=== PATIENT | male | born 1970 | race Caucasian/White ===

== ENCOUNTER 2019-01-23 09:30 | Outpatient (CLI) | payer MEDICARE, MEDICAID | END 2019-01-23 23:59 | disposition home or self-care (01) | LOC: RAD 09:30 | DX: G40.309 Generalized idiopathic epilepsy and epileptic syndromes, not intractable, without status epilepticus (principal); Z87.891 Personal history of nicotine dependence | CPT/HCPCS: 95819 ==

== ENCOUNTER 2023-10-28 07:54 | Emergency (ER) | payer MEDICARE, MEDICAID ==
[~2023-10-28] VITALS: Ht 175.3 cm; Wt 81.8 kg
[2023-10-28 07:55] VITALS: BP 105/77; PULSE 88; RESP 15; TEMP 98.8; O2SAT 95
[2023-10-28] MEDS ORDERED: NEOM1OIN8 TOP (08:40)
[2023-10-28] MEDS: TETanus/Pertussis (Acell)/Diphther VAC/PF (Tdap-Adult) 0.5ml syringe IMVAC ONE (09:05)
== END 2023-10-28 10:07 | disposition home or self-care (01) ==
LOC: ER 07:54
DX: S80.212A Abrasion, left knee, initial encounter (principal); S80.211A Abrasion, right knee, initial encounter; G80.9 Cerebral palsy, unspecified; Z79.899 Other long term (current) drug therapy; W01.10XA Fall on same level from slipping, tripping and stumbling with subsequent striking against unspecified object, initial encounter; Y93.89 Activity, other specified; Y92.89 Other specified places as the place of occurrence of the external cause; Y99.8 Other external cause status
CPT/HCPCS: 90471; 90715; 99284

== ENCOUNTER 2023-12-25 21:29 | Emergency (ER) | payer MEDICARE, MEDICAID ==
[~2023-12-25] VITALS: Ht 162.6 cm; Wt 81.0 kg
[~2023-12-25 21:29] MED LIST: NEOM1OIN8 TOP
[2023-12-25 21:41] VITALS: BP 126/79; PULSE 106; RESP 16; TEMP 98.2; O2SAT 95
== END 2023-12-25 23:22 | disposition home or self-care (01) ==
LOC: ER 21:30
DX: S80.02XA Contusion of left knee, initial encounter (principal); S80.01XA Contusion of right knee, initial encounter; Z79.899 Other long term (current) drug therapy; W01.0XXA Fall on same level from slipping, tripping and stumbling without subsequent striking against object, initial encounter; Y93.89 Activity, other specified; Y92.89 Other specified places as the place of occurrence of the external cause; Y99.8 Other external cause status
CPT/HCPCS: 99284

== ENCOUNTER 2024-01-15 22:17 | Emergency (ER) | payer MEDICARE, MEDICAID ==
[~2024-01-15] VITALS: Ht 167.6 cm; Wt 72.7 kg
[~2024-01-15 22:17] MED LIST changes: +ZINC113C10 TOP
[2024-01-16 00:58] VITALS: TEMP 97.5
[2024-01-16] MEDS ORDERED: ketorolac trometh 15mg/ml vial 15 MG/ML ML IM ONE (02:50)
[2024-01-16] MEDS: ketorolac trometh 30MG/ML vial 30 MG/ML VIAL IM ONE (03:05)
[2024-01-16 03:42] VITALS: BP 138/91; PULSE 84; RESP 19; O2SAT 99
== END 2024-01-16 03:45 | disposition home or self-care (01) ==
LOC: ER 22:18
DX: G89.29 Other chronic pain (principal); M54.50 Low back pain, unspecified
CPT/HCPCS: 96372; 99283; J1885

== ENCOUNTER 2024-01-18 00:45 | Emergency (ER) | payer MEDICARE, MEDICAID ==
[~2024-01-18] VITALS: Ht 170.2 cm; Wt 79.7 kg
[2024-01-18 00:53] VITALS: PULSE 64
[2024-01-18] MEDS: ketorolac trometh 30MG/ML vial 30 MG/ML VIAL IM ONE (01:10)
[2024-01-18 02:53] VITALS: BP 134/87; RESP 16; TEMP 97.9; O2SAT 99
== END 2024-01-18 02:56 | disposition home or self-care (01) ==
LOC: ER 00:46
DX: M54.9 Dorsalgia, unspecified (principal); Z88.8 Allergy status to other drugs, medicaments and biological substances; Z79.899 Other long term (current) drug therapy
CPT/HCPCS: 96372; 99284; J1885

== ENCOUNTER 2024-01-18 20:38 | Emergency (ER) | payer MEDICARE, MEDICAID ==
[~2024-01-18] VITALS: Ht 175.3 cm; Wt 77.6 kg
[2024-01-18 21:52] LABS: BASOPHILS % (AUTO) 0.5 % (0-1); EOSINOPHILS # (AUTO) 0.3 X10'3 (0-0.9); EOSINOPHILS % (AUTO) 5.1 % (0-6); HEMATOCRIT 46.2 % (42.0-52.0); HEMOGLOBIN 15.8 g/dl (14.0-17.9); LYMPHOCYTES # (AUTO) 1.7 X10'3 (1.1-4.8); LYMPHOCYTES % (AUTO) 26.7 % (21-51); MEAN CORPUSCULAR HEMOGLOBIN 32.6 PG (27.0-31.0); MEAN CORPUSCULAR HGB CONC 34.2 g/dL (33.0-36.5); MEAN CORPUSCULAR VOLUME 95.3 FL (78-98); MEAN PLATELET VOLUME 7.8 FL (7.4-10.4); MONOCYTES # (AUTO) 0.5 X10'3 (0-0.9); MONOCYTES % (AUTO) 7.7 % (2-12); NEUTROPHILS # (AUTO) 3.9 X10'3 (1.8-7.7); PLATELET COUNT 194 X10'3 (140-440); RED BLOOD COUNT 4.86 X10'6 (4.70-6.10); RED CELL DISTRIBUTION WIDTH 13.4 % (11.5-14.5); WHITE BLOOD COUNT 6.4 X10'3 (4.5-11.0)
[2024-01-18 22:04] LABS: ALANINE AMINOTRANSFERASE 28 U/L (12-78); ALBUMIN 3.2 G/DL (3.4-5.0); ALBUMIN/GLOBULIN RATIO 1.1 (1.1-1.5); ALKALINE PHOSPHATASE 80 IU/L (46-116); ANION GAP 4 (8-16); ASPARTATE AMINO TRANSFERASE 18 U/L (10-37); BILIRUBIN,TOTAL 0.2 MG/DL (0.1-1.0); BLOOD UREA NITROGEN 9 MG/DL (7-18); BUN/CREATININE RATIO 10.3 (10.0-20.0); CALCIUM 8.6 MG/DL (8.5-10.1); CHLORIDE 109 MMOL/L (99-107); CREATININE 0.87 MG/DL (0.60-1.10); GLUCOSE 124 MG/DL (70-104); LIPASE 74 U/L (16-77); POTASSIUM 3.8 MMOL/L (3.5-5.1); SODIUM 143 MMOL/L (135-145); TOTAL CARBON DIOXIDE 30.4 MMOL/L (24-32); TOTAL PROTEIN 6.2 G/DL (6.4-8.2); eCRCL 99 ML/MIN; eGFR > 90 ML/MIN
[2024-01-18 22:06] LABS: BILIRUBIN,URINE NEGATIVE (Neg); CLARITY,URINE CLEAR (Clear); COLOR,URINE STRAW (Yellow); GLUCOSE, URINE NEGATIVE (Neg); KETONES,URINE NEGATIVE (Neg); LEUKOCYTE ESTERASE ,URINE NEGATIVE (Neg); NITRITES, URINE NEGATIVE (Neg); OCCULT BLOOD,URINE NEGATIVE (Neg); PROTEIN,URINE NEGATIVE (Neg); UA COLLECTION TYPE VOIDED; UROBILINOGEN,URINE 0.2 E.U/dL (0.2-1.0)
[2024-01-18 22:43] VITALS: BP 105/52; PULSE 96; RESP 15; TEMP 99.1; O2SAT 96
== END 2024-01-18 22:50 | disposition home or self-care (01) ==
LOC: ER 20:39
DX: R10.84 Generalized abdominal pain (principal); R19.7 Diarrhea, unspecified; R11.2 Nausea with vomiting, unspecified; K59.00 Constipation, unspecified; Z88.8 Allergy status to other drugs, medicaments and biological substances; Z79.899 Other long term (current) drug therapy
CPT/HCPCS: 36415; 80053; 81003; 83690; 85025; 99283

== ENCOUNTER 2024-01-19 20:48 | Emergency (ER) | payer MEDICARE, MEDICAID ==
[~2024-01-19] VITALS: Ht 203.2 cm; Wt 68.2 kg
[2024-01-19 20:59] VITALS: TEMP 98.2
[2024-01-19 21:17] VITALS: BP 120/83; PULSE 64; RESP 16; O2SAT 98
== END 2024-01-19 21:19 | disposition home or self-care (01) ==
LOC: ER 20:49
DX: M54.9 Dorsalgia, unspecified (principal); Z88.8 Allergy status to other drugs, medicaments and biological substances; Z79.899 Other long term (current) drug therapy; R10.32 Left lower quadrant pain
CPT/HCPCS: 99283

== ENCOUNTER 2024-02-01 00:53 | Emergency (ER) | payer MEDICARE, MEDICAID ==
[~2024-02-01] VITALS: Ht 172.7 cm; Wt 82.0 kg
[2024-02-01 03:35] VITALS: BP 106/71; PULSE 84; RESP 14; TEMP 98.1; O2SAT 95
== END 2024-02-01 05:57 | disposition home or self-care (01) ==
LOC: ER 00:54
DX: M79.672 Pain in left foot (principal); Z79.899 Other long term (current) drug therapy; Z88.8 Allergy status to other drugs, medicaments and biological substances
CPT/HCPCS: 73630; 99284

== ENCOUNTER 2025-04-30 16:42 | Emergency (ER) | payer MEDICARE, MEDICAID | END 2025-04-30 17:40 | disposition left against medical advice (07) | LOC: ER 16:43 | DX: Z00.00 Encounter for general adult medical examination without abnormal findings (principal); Z53.21 Procedure and treatment not carried out due to patient leaving prior to being seen by health care provider; Z88.8 Allergy status to other drugs, medicaments and biological substances ==